=== PATIENT | female | born 1950 | race Caucasian/White ===

== ENCOUNTER 2017-04-05 08:12 | Emergency (ER) | payer OTHER, MEDICARE ==
[~2017-04-05] VITALS: Ht 162.6 cm; Wt 106.1 kg
[~2017-04-05 08:12] MED LIST: ATENOLOL100 M1 PO; DICLOFENAC SODI75 MG PO; FISH OIL SOFTG1 EACH PO; FLUOXETINE HCL20 MG PO; HYDROCHLOROTHIA25 MG PO; LIPITOR5 MG PO; NAPROXEN500 MG PO; NORVASC10 MG PO; PRINZIDE 20-121 EACH PO; SOMA350 MG PO; TRAZODONE HCL50 MG PO; VITAMIN C; ZYLOPRIM100 MG PO
[2017-04-05] MEDS ORDERED: MONTELUKAST SOD10 MG PO (08:40)
[2017-04-05] MEDS ORDERED: PREDNISONE20 MG PO (08:40)
[2017-04-05] MEDS ORDERED: LISINOPRIL-HCT1 EAC3 PO (08:43)
[2017-04-05 09:02] LABS: BASOPHIL COUNT 0.1 K/uL (0-0.1); EOSINOPHIL (%) 0.7 % (0-5); EOSINOPHIL COUNT 0.1 K/uL (0-0.3); HEMATOCRIT 37.5 % (36.0-46.0); IMMATURE GRANULOCYTE (%) 0.8 % (0.0-0.7); IMMATURE GRANULOCYTE COUNT 0.1 K/uL; INSTRUMENT ABS NEUTROPHIL CT 9.5 K/uL; LYMPHOCYTE COUNT 4.2 K/uL (1.0-2.8); MCH 30.5 PG (29.0-34.0); MCHC 33.1 G/DL (30.0-36.0); MCV 92.1 FL (83-99); MEAN PLAT.VOLUME 9.2 uM^3 (9.5-12.4); MONOCYTE (%) 5.4 % (3-12); MONOCYTE COUNT 0.8 K/uL (0-0.8); NEUTROPHIL (%) 64.4 % (45-76); NEUTROPHIL COUNT 9.5 K/uL (1.8-6.4); PLATELET COUNT 354 K/uL (156-360); RBC DIS.WIDTH-CV 13.8 % (11.8-14.6); RBC DIS.WIDTH-SD 46.8 % (39-53); RED BLOOD COUNT 4.07 M/uL (3.80-5.20); WHITE BLOOD COUNT 14.8 K/uL (4.1-10.2)
[2017-04-05 09:11] LABS: D-DIMER ELISA 1.39 mg/L FEU (< 0.57)
[2017-04-05 09:37] LABS: ANION GAP 7 MEQ/L (2-14); CHLORIDE 107 MEQ/L (99-109); GFR ESTIMATE (CALCULATED) > 59 mL/min/; GLUCOSE 97 mg/dL (70-99); POTASSIUM 3.9 MEQ/L (3.7-5.4); SAMPLE HEMOLYSIS CHECK 0; SAMPLE ICTERIC CHECK 0; SAMPLE LIPEMIA CHECK 0; SODIUM 142 MEQ/L (136-147); UREA NITROGEN (BUN) 31 mg/dL (9-23)
[2017-04-05 09:38] LABS: TROP-I INTERPRETATION NEGATIVE; TROPONIN-I < 0.01 ng/mL (0.0-0.30)
[2017-04-05] MEDS ORDERED: ZITHROMAX Z-PA250 MG PO (11:35)
[2017-04-05 11:47] VITALS: BP 122/62
== END 2017-04-05 11:50 | disposition home or self-care (01) ==
LOC: EME 08:12
PROVIDERS: Emergency Medicine
DX: J20.9 Acute bronchitis, unspecified (principal); J45.909 Unspecified asthma, uncomplicated; I10 Essential (primary) hypertension; E78.5 Hyperlipidemia, unspecified; F32.9 Major depressive disorder, single episode, unspecified; M10.9 Gout, unspecified; G25.0 Essential tremor; Z90.01 Acquired absence of eye
CPT/HCPCS: 71010; 71275; 80048; 83880; 84484; 85025; 85379; 93005; 94640; 99281; 99283; J7030

== ENCOUNTER → 2017-05-12 | Outpatient (CLI) | payer OTHER, MEDICARE ==
[~2017-05-12] MED LIST changes: +LISINOPRIL-HCT1 EAC3 PO; +MONTELUKAST SOD10 MG PO; +PREDNISONE20 MG PO; +ZITHROMAX Z-PA250 MG PO
== END | disposition home or self-care (01) ==
DX: M17.12 Unilateral primary osteoarthritis, left knee (principal); R26.2 Difficulty in walking, not elsewhere classified; M25.562 Pain in left knee; M25.662 Stiffness of left knee, not elsewhere classified; M62.81 Muscle weakness (generalized)
CPT/HCPCS: 97110 GP; 97161 GP; G8978 GP; G8979 GP; G8980 GP

== ENCOUNTER 2017-06-08 22:35 | Inpatient (IN) | payer OTHER, MEDICARE ==
[~2017-06-08] VITALS: Ht 162.6 cm; Wt 104.5 kg
[~2017-06-08 22:35] MED LIST changes: +IRON325 M1 PO; +LATANOPROST2.5 ML RIGHT EYE
[2017-06-09 06:05] VITALS: BP 121/68
[2017-06-09 10:27] VITALS: BP 93/55
[2017-06-09 10:44] LABS: MCH 29.8 PG (29.0-34.0); MCHC 32.6 G/DL (30.0-36.0); MCV 91.2 FL (83-99); MEAN PLAT.VOLUME 9.5 uM^3 (9.5-12.4); PLATELET COUNT 272 K/uL (156-360); RBC DIS.WIDTH-CV 12.9 % (11.8-14.6); RBC DIS.WIDTH-SD 42.4 % (39-53); RED BLOOD COUNT 3.73 M/uL (3.80-5.20); WHITE BLOOD COUNT 7.6 K/uL (4.1-10.2)
[2017-06-09 15:18] VITALS: BP 152/67
[2017-06-09 19:58] VITALS: BP 154/71
[2017-06-10] VITALS (7 sets, daily range): BP systolic 133–153; BP diastolic 61–86
[2017-06-10 06:45] LABS: HEMATOCRIT 33.7 % (36.0-46.0); MCV 88.7 FL (83-99)
[2017-06-10 07:06] LABS: ANION GAP 10 MEQ/L (2-14); CHLORIDE 98 MEQ/L (99-109); GFR ESTIMATE (CALCULATED) > 59 mL/min/; GLUCOSE 150 mg/dL (70-99); POTASSIUM 3.3 MEQ/L (3.7-5.4); SAMPLE HEMOLYSIS CHECK 0; SAMPLE ICTERIC CHECK 0; SAMPLE LIPEMIA CHECK 0; SODIUM 131 MEQ/L (136-147); UREA NITROGEN (BUN) 12 mg/dL (9-23)
[2017-06-11 03:57] VITALS: BP 131/61
[2017-06-11 07:43] LABS: HEMATOCRIT 32.4 % (36.0-46.0); MCV 86.2 FL (83-99)
[2017-06-11 08:07] VITALS: BP 119/57
[2017-06-11] MEDS ORDERED: LOVENOX40 MG/0.4 SC (08:41)
[2017-06-11] MEDS ORDERED: HYDROCODON-ACE1 EAC7 PO (08:41)
[2017-06-11] MEDS ORDERED: DOCUSATE SODIU100 MG PO (08:41)
[2017-06-11 11:36] VITALS: BP 131/58
== END 2017-06-11 15:21 | DRG 470 ==
LOC: ENRESERV 22:35 → 2SOUTH 06-09 05:38 → 3WEST 06-09 05:38 → 2SOUTH 06-09 07:20 → ENRESERV 06-09 07:46 → 3WEST 06-09 10:13 → 2SOUTH 06-09 14:13 → 3WEST 06-11 15:21
PROVIDERS: Orthopaedic Surgery
PROC: 0SRD0J9 Replacement of Left Knee Joint with Synthetic Substitute, Cemented, Open Approach (ICD-10-PCS; principal; 2017-06-09)
DX: M17.12 Unilateral primary osteoarthritis, left knee (principal); M21.169 Varus deformity, not elsewhere classified, unspecified knee; I10 Essential (primary) hypertension; F41.1 Generalized anxiety disorder; F32.9 Major depressive disorder, single episode, unspecified; M10.9 Gout, unspecified; J45.909 Unspecified asthma, uncomplicated; Z96.651 Presence of right artificial knee joint; Z90.01 Acquired absence of eye
CPT/HCPCS: 73560; 80048; 85014; 85018; 85027; C1713; J0131; J0690; J1170; J1650; J2250; J2405; J3010; J7050

== ENCOUNTER 2017-08-03 14:07 | Day surgery (SDC) | payer OTHER, MEDICARE ==
[~2017-08-03] VITALS: Ht 162.6 cm; Wt 100.4 kg
[~2017-08-03 14:07] MED LIST changes: -ATENOLOL100 M1 PO; +DOCUSATE SODIU100 MG PO; +HYDROCODON-ACE1 EAC7 PO; +LOVENOX40 MG/0.4 SC; +TENORMIN100 MG PO
[2017-08-03 14:44] VITALS: BP 119/60
[2017-08-03 18:25] VITALS: BP 149/60
[2017-08-03 19:19] VITALS: BP 141/76
== END 2017-08-03 19:20 | disposition home or self-care (01) ==
LOC: SDC 14:07
PROC: 0SW Lower Joints, Revision (ICD-10-PCS; principal; 2017-08-03)
DX: M24.662 Ankylosis, left knee (principal); Z96.652 Presence of left artificial knee joint; I10 Essential (primary) hypertension; J45.909 Unspecified asthma, uncomplicated; Z88.2 Allergy status to sulfonamides
CPT/HCPCS: 73560; 76000; J1170; J2405; J3010